=== PATIENT | female | born 1970 | race African-American/Black ===

== ENCOUNTER 2017-04-17 00:26 | Emergency (ER) | payer SELFPAY ==
[~2017-04-17] VITALS: Ht 162.6 cm; Wt 106.5 kg
[2017-04-17 01:05] VITALS: BP 147/70
== END 2017-04-17 04:21 | disposition left against medical advice (07) ==
LOC: ER 00:28
DX: R10.9 Unspecified abdominal pain (principal); R07.9 Chest pain, unspecified; M54.9 Dorsalgia, unspecified; M79.89 Other specified soft tissue disorders; Z53.21 Procedure and treatment not carried out due to patient leaving prior to being seen by health care provider

== ENCOUNTER 2017-12-04 14:54 | Emergency (ER) | payer MEDICAID | END 2017-12-04 16:37 | disposition left against medical advice (07) | LOC: ER 14:54 | DX: M79.604 Pain in right leg (principal); M79.605 Pain in left leg; Z53.21 Procedure and treatment not carried out due to patient leaving prior to being seen by health care provider ==

== ENCOUNTER 2018-08-21 05:40 | Emergency (ER) | payer MEDICAID ==
[~2018-08-21] VITALS: Ht 165.1 cm; Wt 91.0 kg
[2018-08-21] MEDS ORDERED: ACETAMINOPHEN 325MG TABLET PO ONE (07:00)
[2018-08-21 08:54] VITALS: BP 147/81
== END 2018-08-21 08:56 | disposition home or self-care (01) ==
LOC: ER 05:40
DX: S02.2XXA Fracture of nasal bones, initial encounter for closed fracture (principal); J34.1 Cyst and mucocele of nose and nasal sinus; R07.89 Other chest pain; R03.0 Elevated blood-pressure reading, without diagnosis of hypertension; I51.7 Cardiomegaly; Y04.2XXA Assault by strike against or bumped into by another person, initial encounter; Y93.89 Activity, other specified; Y92.89 Other specified places as the place of occurrence of the external cause
CPT/HCPCS: 70450; 70486; 71045; 81025; 93005; 99284; Z7610

== ENCOUNTER 2018-12-04 16:02 | Emergency (ER) | payer MEDICAID ==
[~2018-12-04] VITALS: Ht 162.6 cm; Wt 91.0 kg
[2018-12-04] MEDS ORDERED: HYDROCODONE/ACETAMINOPHEN 5/325MG TABLET PO ONE (18:00)
[2018-12-04] MEDS ORDERED: CEFAZOLIN SODIUM 1000MG/VIAL IM ONE (19:00)
[2018-12-04 20:12] VITALS: BP 127/92
== END 2018-12-04 23:13 | disposition home or self-care (01) ==
LOC: ER 22:50
DX: S92.424B Nondisplaced fracture of distal phalanx of right great toe, initial encounter for open fracture (principal); W20.8XXA Other cause of strike by thrown, projected or falling object, initial encounter; Y93.89 Activity, other specified; Y92.89 Other specified places as the place of occurrence of the external cause; R03.0 Elevated blood-pressure reading, without diagnosis of hypertension; E66.01 Morbid (severe) obesity due to excess calories; Z68.34 Body mass index [BMI] 34.0-34.9, adult
CPT/HCPCS: 73660; 81025; 96372; 99283; J0690

== ENCOUNTER 2019-01-30 08:58 | Emergency (ER) | payer MEDICAID ==
[~2019-01-30] VITALS: Ht 165.1 cm; Wt 91.0 kg
[2019-01-30 11:07] VITALS: BP 186/92
== END 2019-01-30 13:11 | disposition left against medical advice (07) ==
LOC: ER 09:03
DX: R51 Headache (principal); R11.10 Vomiting, unspecified; Z53.21 Procedure and treatment not carried out due to patient leaving prior to being seen by health care provider

== ENCOUNTER 2019-02-07 22:52 | Emergency (ER) | payer MEDICAID ==
[~2019-02-07] VITALS: Ht 162.6 cm; Wt 91.0 kg
[2019-02-08 00:07] VITALS: BP 180/92
== END 2019-02-08 03:49 | disposition left against medical advice (07) ==
LOC: ER 23:02
DX: Z53.21 Procedure and treatment not carried out due to patient leaving prior to being seen by health care provider (principal)

== ENCOUNTER 2019-07-28 12:05 | Emergency (ER) | payer MEDICAID ==
[~2019-07-28] VITALS: Ht 162.6 cm; Wt 105.0 kg
[2019-07-28 12:12] VITALS: BP 161/93
[2019-07-28] MEDS ORDERED: ACETAMINOPHEN 500MG TABLET PO ONE (13:00)
== END 2019-07-28 13:23 | disposition home or self-care (01) ==
LOC: ER 13:08
DX: M54.42 Lumbago with sciatica, left side (principal); M54.41 Lumbago with sciatica, right side
CPT/HCPCS: 99282